=== PATIENT | male | born 1975 | race Caucasian/White ===

== ENCOUNTER 2017-12-29 07:19 | Emergency (ER) | payer SELFPAY ==
[~2017-12-29] VITALS: Ht 167.6 cm; Wt 93.0 kg
[2017-12-29] MEDS ORDERED: SODIUM CHLORIDE 0.9% 1,000 ML IV ONE (08:00)
[2017-12-29 08:31] LABS: BASOPHILS % 0.7 % (0.0-2.0); EOSINOPHILS % 0.4 % (0.0-5.0); HEMATOCRIT. 40.9 % (42.0-52.0); HEMOGLOBIN. 13.6 g/dL (14.0-18.0); LYMPHOCYTES % 30.5 % (20.0-50.0); MEAN CORPUSCULAR HEMOGLOBIN 28.2 pg (28.0-32.0); MEAN CORPUSCULAR VOLUME 84.7 fL (80.0-94.0); MEAN PLATELET VOLUME 8.2 fl (7.4-10.4); MONOCYTES % 9.1 % (2.0-8.0); NEUTROPHILS % 59.3 % (40.0-76.0); PLATELET 246 x1000/uL (130-400); RED BLOOD CELL COUNT 4.83 mill/uL (4.7-6.1); RED CELL DISTRIBUTION WIDTH 14.3 % (11.6-14.6)
[2017-12-29 08:35] LABS: CHLORIDE 103 mEq/L (98-107)
[2017-12-29 08:37] LABS: PROTHROMBIN TIME 10.8 sec (9.4-11.6)
[2017-12-29 08:40] LABS: ETHANOL BLOOD 229 mg/dL
[2017-12-29 11:43] VITALS: BP 128/88
== END 2017-12-29 12:49 | disposition home or self-care (01) ==
LOC: ER 07:19
DX: R11.2 Nausea with vomiting, unspecified (principal); F10.229 Alcohol dependence with intoxication, unspecified; Y90.7 Blood alcohol level of 200-239 mg/100 ml
CPT/HCPCS: 36415; 80053; 83690; 85025; 85610; 96360; 96361; 99285; G0482; J7030